=== PATIENT | female | born 1985 | race Caucasian/White ===

== ENCOUNTER 2022-04-13 09:56 | Day surgery (SDC) | payer OTHER ==
[~2022-04-13] VITALS: Ht 175.3 cm; Wt 119.3 kg
[2022-04-13 10:25] LABS: HCG,QUAL RESULT NEGATIVE (NEGATIVE)
[2022-04-13] MEDS ORDERED: ISOFLURANE 15 MIN GAS INH ONE (12:56)
[2022-04-13] MEDS ORDERED: LR 1,000 ML IV.SOLN IV ONE (12:56)
[2022-04-13] MEDS ORDERED: NS IRRIG SOLN 1000 ML IR ONE (12:56)
[2022-04-13] MEDS ORDERED: ONDANSETRON HCL 4 MG/2 ML VIAL ONE (12:56)
[2022-04-13] MEDS ORDERED: DEXAMETHASONE SOD PHOSPHATE 4 MG/ML VIAL ONE (12:56)
[2022-04-13] MEDS ORDERED: fentaNYL CITRATE/PF 100 MCG/2 ML AMP ONE (12:56)
[2022-04-13] MEDS ORDERED: KETOROLAC TROMETHAMINE 30 MG VIAL ONE (12:56)
[2022-04-13] MEDS ORDERED: NS 1000 ML IV.SOLN IV ONE (12:56)
[2022-04-13] MEDS ORDERED: PROPOFOL 200MG/ 20ML VIAL (DIPRIVAN) IV ONE (12:56)
[2022-04-13] MEDS ORDERED: HYDROmorphone 1 MG/ML INJ. CARTRIDGE IVP PRN ×3 (13:30→14:15)
[2022-04-13 15:03] VITALS: BP_SYST 126
== END 2022-04-13 15:11 | disposition home or self-care (01) ==
LOC: SDS 09:56 → SMU 09:58 → SDS 15:11
PROVIDERS: ATTEND Obstetrics & Gynecology
DX: N92.0 Excessive and frequent menstruation with regular cycle (principal); I10 Essential (primary) hypertension; Z91.040 Latex allergy status; Z91.011 Allergy to milk products; Z91.013 Allergy to seafood; Z91.010 Allergy to peanuts; Z20.822 Contact with and (suspected) exposure to COVID-19
CPT/HCPCS: 87081; 36415 ×2; 58563; 84703; 88305; 87426; U0003; J1100; J1885; J2405; J2704; J3010; J7120; J7030